=== PATIENT | female | born 1965 | race Caucasian/White ===

== ENCOUNTER 2018-08-22 05:35 | Inpatient (IN) | payer OTHER ==
[2018-08-18 16:49] VITALS: BMI 22.7
[2018-08-22] VITALS (28 sets, daily range): BP systolic 94–128; BP diastolic 52–86; PULSE 68–108; RESP 14–24; Ht 161.3 cm; Wt 59.0 kg
[~2018-08-22] VITALS: Ht 161.3 cm; Wt 59.0 kg
[~2018-08-22 05:35] MED LIST: LACTATED RINGER'S 1,000 ML IV SCH; OLME1TAB33 PO; VANCOMYCIN 1 GM (PMX) 250 ML IVPB ONE
--- NOTE | 2018-08-22 06:51 | HPN ---
Date/Time of Note Date/Time of Note DATE: 08/22/18 TIME: 06:51 Interval H&P Admission Note Pt. seen H&P reviewed: No system changes JOE PITTS MD Aug 22, 2018 06:51
--- NOTE | 2018-08-22 06:58 | PREAC ---
Date/Time of Note Date/Time of Note DATE: 08/22/18 TIME: 06:52 Anesthesia Eval and Record Evaluation Time Pre-Procedure Interview DATE: 08/22/18 TIME: 06:52 Age 53 Sex female NPO: 8 hrs Preoperative diagnosis Cervical Spine Displacement, DDD Planned procedure Anterior Cervical Spine Disectomy and Decompression and instrumented Fusion C4- 5, C5-6, C6-7 Past Medical History Past Medical History: Includes Cardio: HTN, Dyslipidemia Surgery & Anesthesia Issues No known issue Meds Anticoagulation: No Beta Katy within 24 hr: No Reason Beta Katy not given: Pt. not on B-Katy Reported Medications Ticqejoiek-Scgpffeduf-WMHY (Tribenzor) 40-5-25 Mg Tablet, 1 TAB PO DAILY, TAB 08/18/18 Current Medications Lactated Ringer's 1,000 ml @ 0 mls/hr Q0M IV Last administered on 08/22/18at 06:34; Admin Dose 25 MLS/HR; Start 08/22/18 at 05:00; Stop 08/22/18 at 16:00 Meds reviewed: Yes Allergies Coded Allergies: Penicillins (Verified Allergy, Unknown, RASH, 08/18/18) Allergies Reviewed: Yes Labs/Studies Labs Reviewed: Reviewed by anesthesiologist test: Negative Studies: ECG (n/a), CXR (n/a) Pre-procedure Exam Airway: Adequate mouth opening, Adequate thyromental dist Mallampati: Mallampati II Teeth: Normal Lung: Normal Heart: Normal ASA Physical Status ASA physical status: 2 Emergency: None Planned Anesthetic General/MAC: ETT Planned Pain Management Parenteral pain med Pre-operative Attestations Prior to commencing anesthesia and surgery, the patient was re-evaluated, there was verification of: *The patient's identity *The results of appropriate recent lab work and preoperative vital signs *The above evaluation not changing prior to induction *Anesthetic plan, risk benefits, alternative and complications discussed with patient/family; questions answered; patient/family understands, accepts and wishes to proceed. REJI FERNANDO MD Aug 22, 2018 06:58
[2018-08-22] MEDS ORDERED: MEPERIDINE 25 MG INJ IV PRN (07:00)
[2018-08-22] MEDS ORDERED: hydrALAzine 20 MG INJ IV PRN (07:00)
[2018-08-22] MEDS ORDERED: DIPHENHYDRAMINE 25 MG CAP PO PRN (07:00)
[2018-08-22] MEDS ORDERED: EPHEDrine 25 MG/5 ML SYG ONE (07:00)
[2018-08-22] MEDS ORDERED: NALOXONE (0.4 MG/ML) INJ IV PRN (07:00)
[2018-08-22] MEDS ORDERED: HYDROmorphONE 0.5 MG/0.5 ML SYG IV PRN (07:00)
[2018-08-22] MEDS ORDERED: ACETAMINOPHEN 325 MG TAB PO PRN (07:00)
[2018-08-22] MEDS ORDERED: LABETALOL HCL 20MG INJ IV PRN (07:00)
[2018-08-22] MEDS ORDERED: MAGNESIUM HYDROXIDE 30ML CUP PO PRN (07:00)
[2018-08-22] MEDS ORDERED: CEPASTAT LOZENGE MT PRN (07:00)
[2018-08-22] MEDS ORDERED: HYDROCODONE/APAP (10/325) TAB PO PRN (07:00)
[2018-08-22] MEDS ORDERED: DIPHENHYDRAMINE 50 MG INJ IV PRN ×2 (07:00)
[2018-08-22] MEDS ORDERED: METOCLOPRAMIDE 10 MG INJ IV PRN (07:00)
[2018-08-22] MEDS ORDERED: HYDROmorphONE 1 MG/5 ML IV SYRINGE IV PRN ×2 (07:00)
[2018-08-22] MEDS ORDERED: BISACODYL 10 MG SUPP PR PRN (07:00)
[2018-08-22] MEDS ORDERED: EPHEDrine 25 MG/5 ML SYG IV PRN (07:00)
[2018-08-22] MEDS ORDERED: FENTAnyl 50 MCG/ML VIAL IV PRN ×3 (07:00)
[2018-08-22] MEDS ORDERED: OXYCODONE/ACETAMINOPHEN (5/325) TAB PO PRN (07:00)
[2018-08-22] MEDS ORDERED: ONDANSETRON 4 MG INJ IV PRN ×2 (07:00)
[2018-08-22] MEDS ORDERED: SEVOFLURANE 15 MIN ONE (07:00)
[2018-08-22] MEDS ORDERED: ROCURONIUM 50 MG INJ ONE (07:05)
[2018-08-22] MEDS ORDERED: PROPOFOL 20 ML ONE (07:05)
[2018-08-22] MEDS ORDERED: MIDAZOLAM 1 MG/ML 2 ML INJ ONE (07:05)
[2018-08-22] MEDS ORDERED: SURGIFOAM POWDER 1 GM KIT ONE (07:07)
[2018-08-22] MEDS ORDERED: THROMBIN (BOVINE) 5,000 UNIT VIAL TP ONE (07:07)
[2018-08-22] MEDS ORDERED: BUPIVACAINE 0.25%/EPI (SDV) 30 ML INJ ONE (07:07)
[2018-08-22] MEDS ORDERED: GELATIN SIZE 100 SPONGE ONE (07:08)
[2018-08-22] MEDS ORDERED: POLYMYXIN/BACITRACIN 1L IRRIG ONE (07:08)
[2018-08-22] MEDS ORDERED: ONDANSETRON 4 MG INJ ONE (08:02)
[2018-08-22] MEDS ORDERED: DEXAMETHASONE 4 MG/ML 5 ML INJ ONE (08:02)
[2018-08-22] MEDS ORDERED: METOCLOPRAMIDE 10 MG INJ ONE (08:02)
[2018-08-22] MEDS ORDERED: SUGAMMADEX SODIUM 200 MG/2 ML VIAL IV ONE (10:02)
--- NOTE | 2018-08-22 10:34 | PAC ---
Date/Time of Note Date/Time of Note DATE: 08/22/18 TIME: 10:34 Post-Anesthesia Notes Post-Anesthesia Note Last documented vital signs T: 98.0 Activity: WNL Respiratory function: WNL Cardiovascular function: WNL Mental status: Baseline Pain reasonably controlled: Yes Hydration appropriate: Yes Nausea/Vomiting absent: Yes REJI FERNANDO MD Aug 22, 2018 10:34
--- NOTE | 2018-08-22 10:46 | SIPON ---
Date/Time of Note Date/Time of Note DATE: 08/22/18 TIME: 10:43 Operative Report Preoperative Diagnosis Cervical stenosis Postoperative Diagnosis Cervical stenosis Operation/Procedure Performed Cervical fusion Surgeon see signature line butcher assistant Gely Anesthesia: general Estimated blood loss: 10 - 50 ml's Transfusion Required none Specimen Disc Grafts/Implants Plate and cage Complications none JOE PITTS MD Aug 22, 2018 10:46
[2018-08-22] MEDS: HYDROmorphONE 1 MG/5 ML IV SYRINGE IV PRN ×2 (11:03→11:41)
[2018-08-22] MEDS ORDERED: SUCCINYLCHOLINE CHLORIDE 100 MG/5 ML SYG IV ONE (11:49)
[2018-08-22] MEDS: D5W-0.45 NACL + KCL 20 MEQ 1,000 ML IV SCH ×2 (12:12→16:51)
[2018-08-22] MEDS: HYDROCODONE/APAP (10/325) TAB PO PRN ×3 (13:19→21:36)
[2018-08-22] MEDS: CYCLOBENZAPRINE 10 MG TAB PO PRN (14:50)
[2018-08-22] MEDS: DOCUSATE SODIUM 100 MG CAP PO SCH ×2 (14:54→21:25)
--- NOTE | 2018-08-22 15:21 | OPR ---
DATE OF OPERATION: 08/22/2018 PREOPERATIVE DIAGNOSES: C4 to C5, C5 to C6, C6 to C7 cervical disk disease with stenosis and radicul opathy. POSTOPERATIVE DIAGNOSES: C4 to C5, C5 to C6, C6 to C7 cervical disk disease with stenosis and radicu lopathy. PROCEDURES: 1. Anterior cervical diskectomy and spinal cord decompression at C4 to C5, C5 to C6 and C6 to C7. 2. Partial corpectomies at C4, C5, C6 and C7. 3. Anterior cervical fusion at C4 to C5, C5 to C6 and C6 to C7. 4. Placement of intervertebral biomechanical device x3. 5. Placement of separate anterior cervical plate at C4 through C7. 6. Use of allograft. 7. Use of operative microscope. 8. Use of C-arm fluoroscopy with interpretation without radiologist present. 9. Intraoperative neuromonitoring. PRIMARY SURGEON: Eliceo Sanchez MD FARM LABOR CONTRACTOR: Leatha Hong PA-C NEED FOR SHOP SUPERVISOR: During this spinal surgical procedure, my middle school assistant principal was used to retract and protect the spinal nerves and dural sac. My middle school assistant principal also employed the suction catheters to ev acuate blood from the surgical field to improve visualization of the neural structures. The assistan t was medically necessary to facilitate the completion of the surgery in a safe and expeditious [facility] r. [facility] regulations, as well as hospital bylaws, preclude the use of non-licensed [facility] [place] care personnel, such as operating room technicians, to perform these functions. FINDINGS: Neuromonitoring at the start of the case revealed right C5 amplitude down 20%, left C6 william n 30%, right C6 down 40%, left C7 down 50%, right C7 down 40%. At the end of the case, nerve signals were normal. The patient had significant disk collapse and stenosis with posterior osteophytes from C4 to C7 necessitating the partial corpectomy in order to decompress the canal fully. ESTIMATED BLOOD LOSS: 40 mL. DRAINS: None. SPECIMENS: Disks from C4 to C5, C5 to C6 and C6 to C7. COMPLICATIONS OF PROCEDURES: None. ANESTHESIOLOGIST: Valdemar Gruber MD TYPE OF ANESTHESIA: General. INDICATIONS FOR PROCEDURE: This is a 53-year-old female with cervical disk disease and radiculopathy who failed nonoperative measures. Given this, it was recommended that she undergo the above procedu re. Preoperatively, we discussed risks, benefits, alternatives. She understood and wished to procee d. DESCRIPTION OF PROCEDURE IN DETAIL: The patient was identified in the preoperative holding area, giv en vancomycin antibiotic, taken to the operating room, where she was successfully placed under genera l anesthesia. Neuromonitoring leads were placed. Sequential compressive devices were applied. Fole y catheter was introduced. Remote intraoperative neuromonitoring was performed by Dr. Meredith cardona from 6:46 until 10:20 to include SSEP, MEP and EMG performed by [employer]. The patient wa s placed in the operative table in supine position. Towel rolls were placed and the arms were tucked at the side. Neck was extended and prepped, draped in usual sterile fashion. Left-sided neck incis ion was then made. Platysma was incised in line with the skin incision. I then identified the inter javan between the sternocleidomastoid and strap muscles and identified the anterior spine. I placed a bent spinal needle and took a lateral film to confirm the correct levels. Next, I subperiosteally di ssected the longus colli to expose the vertebral bodies and disks from C4 to C7. Retractors were syeda tavares and the anesthesiologist was deflated and reinflated the endotracheal cuff. Microscope was then brought in. I then performed anterior cervical diskectomy and spinal cord decompression at C4 to C5, C5 to C6 and C6 to C7. Due to large osteophytes, I had to perform partial corpectomies in order to decompress the canal thoroughly. I therefore performed partial corpectomies at C4, C5, C6 and C7, re moving at least 50% of each of the vertebral bodies. Once the decompression was completed, all nerve signals returned to normal. I placed various trials and chose the appropriate graft height. I then took the titanium cage within which I placed allograft. I impacted the intervertebral biomechanical device into the C4 to C5, C5 to C6 and C6 to C7 levels to complete the fusion at all 3 levels. Thes e cages did not have integral screws and therefore I placed a separate anterior plate spanning from C 4 to C7 with 14 mm screws. I locked down all the screws. At this point, I took the microscope off t he field. I took final AP and lateral images and I was happy with the placement of the hardware and alignment of the spine. Nerve signals were normal. The wound was irrigated and hemostasis was achie david. There was no active bleeding; therefore, I elected not to place a drain. The retractors were r emoved after irrigation and I closed the wound in layers. I closed the platysma with a running 2-0 V icryl stitch. I then closed subcutaneous tissue with a 3-0 Vicryl stitch. Dermabond was then applie d. The patient was then awakened from anesthesia and taken to the recovery room in stable condition. Lap, sponge and instrument counts were correct x2. There were no apparent complications during the procedure. The patient will be admitted to the orthopedic fish for routine postoperative care to include pain co ntrol, neurovascular checks, antibiotics and physical therapy. Dictated By: ELICEO SANCHEZ MD BB/NTS Conf#: [id number] DID#: [id number] CC: ELOY VAIL MD;*End*
[2018-08-22] MEDS: VANCOMYCIN 1 GM (PMX) 250 ML IVPB SCH (17:42)
--- NOTE | 2018-08-22 18:19 | CONS ---
Assessment/Plan Assessment/Plan Problems: (1) Essential (primary) hypertension Status: Chronic Comment: Cont. home BP therapy and monitor to make sure BP not too low. (2) Cervical disc disorder with radiculopathy of cervical region Status: Resolved Comment: Per primary team (3) Status post cervical spinal fusion Status: Acute Comment: Doing well POD#0. Pain control and PT per primary team. Will monitor and manage any medical issues should they arise. Consultation Date/Type/Reason Admit Date/Time Aug 22, 2018 at 05:35 Date of Consultation: Aug 22, 2018 Type of Consult Medicine Reason for Consultation Medical Management Requesting Provider: JOE PITTS MD Date/Time of Note DATE: 08/22/18 TIME: 18:12 Hx of Present Illness 53 y/o C F w/ h/o HTN in [facility] until last 2 years when she began to experience R neck pain. (+) range limitation on turning head to the R. (+) pain w/ lying on her neck. Needed pain meds, special pillows. Had PT, epidurals, sought chiropractic to no avail. Today had scheduled c-spine diskectomy and fusion. Doing well POD#0. Pain controlled. Ambulating w/ PT. Constitutional: no complaints, improved Eyes: no complaints ENT: no complaints Respiratory: no complaints Cardiovascular: no complaints Gastrointestinal: no complaints Genitourinary: no complaints Musculoskeletal: no complaints Neurologic: no complaints Past Medical History Medical History: hypertension Home Meds Reported Medications Ruepbvlziy-Vpheujneyw-TSYN (Tribenzor) 40-5-25 Mg Tablet, 1 TAB PO DAILY, TAB 08/18/18 Medications Current Medications Potassium Chloride/Dextrose/ Sod Cl 1,000 ml @ 100 mls/hr Q10H IV Last administered on 08/22/18at 12:12; Admin Dose 100 MLS/HR; Start 08/22/18 at 06:51 Acetaminophen/ Hydrocodone Bitart ([place] (10/325)) 1 tab Q4H PRN PO .PAIN 1-5; Start 08/22/18 at 07:00 Acetaminophen/ Hydrocodone Bitart ([place] (10/325)) 2 tab Q4H PRN PO .PAIN 6-10 Last administered on 08/22/18at 17:43; Admin Dose 2 TAB; Start 08/22/18 at 07:00 Hydromorphone HCl (Dilaudid) 0.2 mg Q1H PRN IV .BREAKTHROUGH PAIN; Start 08/22/18 at 07:00 Vancomycin HCl 250 ml @ 125 mls/hr Q12H IVPB Last administered on 08/22/18at 17:42; Admin Dose 125 MLS/HR; Start 08/22/18 at 18:00; Stop 08/23/18 at 07:59 Ondansetron HCl (Zofran Inj) 4 mg Q6H PRN IV NAUSEA/VOMITING; Start 08/22/18 at 07:00 Bisacodyl (Dulcolax Supp) 10 mg DAILY PRN NM .CONSTIPATION; Start 08/22/18 at 07:00 Docusate Sodium (Colace) 100 mg BID PO Last administered on 08/22/18at 14:54; Admin Dose 100 MG; Start 08/22/18 at 09:00 Magnesium Hydroxide (Milk Of Mag) 30 ml HS PRN PO .CONSTIPATION/DYSPEPSIA; Start 08/22/18 at 07:00 Acetaminophen (Tylenol Tab) 650 mg Q4H PRN PO AMBROSIO OR TEMP GREATER THAN 101.3F; Start 08/22/18 at 07:00 Cyclobenzaprine HCl (Flexeril) 10 mg TID PRN PO .MUSCLE SPASMS Last administered on 08/22/18at 14:50; Admin Dose 10 MG; Start 08/22/18 at 07:00 Phenol (Cepastat Lozenge) 1 lozenge PRN PRN MT .SORE THROAT; Start 08/22/18 at 07:00 Diphenhydramine HCl (Benadryl) 25 mg Q6H PRN PO .ITCHING; Start 08/22/18 at 07:00 Diphenhydramine HCl (Benadryl) 25 mg Q6H PRN IV .ITCHING; Start 08/22/18 at 07:00 Naloxone HCl (Narcan) 0.2 mg Q2M PRN IV .RR 8 BREATHS/MIN OR LESS; Start 08/22/18 at 07:00 Hydromorphone HCl (Dilaudid) 0.2 mg PACU PRN IV MILD PAIN 1-3; Start 08/22/18 at 07:00; Stop 08/22/18 at 19:00 Hydromorphone HCl (Dilaudid) 0.4 mg PACU PRN IV MOD PAIN 4-6 Last administered on 08/22/18at 11:12; Admin Dose 0.4 MG; Start 08/22/18 at 07:00; Stop 08/22/18 at 19:00 Hydromorphone HCl (Dilaudid) 0.6 mg PACU PRN IV SEVERE PAIN 7-10 Last administered on 08/22/18at 11:41; Admin Dose 0.6 MG; Start 08/22/18 at 07:00; Stop 08/22/18 at 19:00 Fentanyl (Sublimaze) 25 mcg PACU ORDER PRN IV MILD PAIN 1-3 Last administered on 08/22/18at 11:30; Admin Dose 25 MCG; Start 08/22/18 at 07:00; Stop 08/22/18 at 19:00 Fentanyl (Sublimaze) 50 mcg PACU ORDER PRN IV MOD PAIN 4-6; Start 08/22/18 at 07:00; Stop 08/22/18 at 19:00 Fentanyl (Sublimaze) 75 mcg PACU ORDER PRN IV SEVERE PAIN 7-10 Last administered on 08/22/18at 10:49; Admin Dose 75 MCG; Start 08/22/18 at 07:00; Stop 08/22/18 at 19:00 Oxycodone/ Acetaminophen (Percocet (5/ 325)) 1 tab PACU ORDER PRN PO .PAIN 1-5; Start 08/22/18 at 07:00; Stop 08/22/18 at 19:00 Ondansetron HCl (Zofran Inj) 4 mg PACU ORDER PRN IV NAUSEA/VOMITING; Start 08/22/18 at 07:00; Stop 08/22/18 at 19:00 Metoclopramide HCl (Reglan) 10 mg PACU ORDER PRN IV NAUSEA/VOMITING; Start 08/22/18 at 07:00; Stop 08/22/18 at 19:00 Labetalol HCl (Labetalol) 5 mg PACU ORDER PRN IV HIGH BLOOD PRESSURE; Start 08/22/18 at 07:00; Stop 08/22/18 at 19:00 Hydralazine HCl (Apresoline) 5 mg PACU ORDER PRN IV HIGH BLOOD PRESSURE; Start 08/22/18 at 07:00; Stop 08/22/18 at 19:00 Ephedrine Sulfate 5 mg PACU ORDER PRN IV BLOOD PRESSURE SUPPORT; Start 08/22/18 at 07:00; Stop 08/22/18 at 19:00 Meperidine HCl (Demerol) 25 mg PACU ORDER PRN IV .RIGORS; Start 08/22/18 at 07:00; Stop 08/22/18 at 19:00 Diphenhydramine HCl (Benadryl) 25 mg PACU ORDER PRN IV .PRURITUS; Start 08/22/18 at 07:00; Stop 08/22/18 at 19:00 Losartan Potassium (Cozaar) 100 mg DAILY PO ; Start 08/23/18 at 09:00 Amlodipine Besylate (Norvasc) 5 mg DAILY PO ; Start 08/23/18 at 09:00 Hydrochlorothiazide (Hydrochlorothiazide) 25 mg DAILY PO ; Start 08/23/18 at 09:00 Allergies: Coded Allergies: Penicillins (Verified Allergy, Unknown, RASH, 08/22/18) Past Surgical History Past Surgical Hx: other (c-sect x 2) Family History Significant Family History: heart disease (father), hypertension, other (thyroid disease) Social History b. 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, , 2 children Alcohol Use: other (1 glass daily) Smoking Status: Never smoker Drug Use: marijuana (nightly to sleep) Exam/Review of Systems Exam Vitals VS - Last 72 Hours, by Label Date Temp Pulse Resp B/P (MAP) Pulse Ox O2 O2 Flow FiO2 Time Delivery Rate 08/22/18 Nasal 2.0 12:30 Cannula 08/22/18 98.7 12:16 08/22/18 78 16 109/53 100 Nasal 11:50 (71) Cannula 08/22/18 78 16 109/52 100 Nasal 11:45 (71) Cannula 08/22/18 92 21 128/86 100 Nasal 11:40 (100) Cannula 08/22/18 92 20 120/77 100 Nasal 11:35 (91) Cannula 08/22/18 74 22 101/68 100 Nasal 11:30 (79) Cannula 08/22/18 78 22 94/57 (69) 100 Nasal 11:25 Cannula 08/22/18 74 22 113/56 100 Nasal 11:20 (75) Cannula 08/22/18 76 19 108/53 100 Nasal 11:15 (71) Cannula 08/22/18 78 22 117/70 100 Nasal 11:10 (86) Cannula 08/22/18 86 20 114/66 100 Nasal 11:05 (82) Cannula 08/22/18 90 18 119/62 100 Nasal 11:00 (81) Cannula 08/22/18 74 22 114/64 100 Nasal 10:55 (81) Cannula 08/22/18 88 19 112/59 100 Nasal 10:50 (76) Cannula 08/22/18 96 20 111/61 100 Mask 10:45 (78) 08/22/18 88 24 125/62 100 Mask 10:40 (83) 08/22/18 Simple 8.0 10:40 Mask 08/22/18 92 23 119/60 100 Mask 10:35 (79) 08/22/18 98.0 72 18 106/64 98 Mask 8.0 10:30 (78) 08/22/18 98.9 68 18 107/73 97 06:50 (84) Vital Signs Date Temp Pulse Resp B/P (MAP) Pulse Ox O2 O2 Flow FiO2 Time Delivery Rate 08/22/18 Nasal 2.0 12:30 Cannula 08/22/18 98.7 12:16 08/22/18 78 16 109/53 100 11:50 (71) Constitutional: alert, oriented, well developed Psych: no complaints, nl mood/affect Eyes: nl conjunctiva, EOMI, nl lids, nl sclera, PERRL ENMT: nl external ears & nose, mucosa pink and moist Neck: supple, non-tender, other ((+) L anterior neck wound); No bruits, No masses, No thyromegaly Respiratory: clear to auscultation, normal air movement Cardiovascular: regular rate and rhythm, nl pulses; No edema, No murmurs/extra sounds, No rub Gastrointestinal: soft, nl liver, spleen, non-tender, bowel sounds; No mass, No rebound or guarding Musculoskeletal: nl extremities to inspection Extremities: normal pulses; No cyanosis, No clubbing, No edema Neurological: DIRECT CUSTOMER SERVICE REPRESENTATIVE II-XII intact, nl mental status, nl speech, nl strength Medications Medication Current Medications Potassium Chloride/Dextrose/ Sod Cl 1,000 ml @ 100 mls/hr Q10H IV Last administered on 08/22/18at 12:12; Admin Dose 100 MLS/HR; Start 08/22/18 at 06:51 Acetaminophen/ Hydrocodone Bitart ([place] (10325)) 1 tab Q4H PRN PO .PAIN 1-5; Start 08/22/18 at 07:00 Acetaminophen/ Hydrocodone Bitart ([place] (10/325)) 2 tab Q4H PRN PO .PAIN 6-10 Last administered on 08/22/18at 17:43; Admin Dose 2 TAB; Start 08/22/18 at 07:00 Hydromorphone HCl (Dilaudid) 0.2 mg Q1H PRN IV .BREAKTHROUGH PAIN; Start 08/22/18 at 07:00 Vancomycin HCl 250 ml @ 125 mls/hr Q12H IVPB Last administered on 08/22/18at 17:42; Admin Dose 125 MLS/HR; Start 08/22/18 at 18:00; Stop 08/23/18 at 07:59 Ondansetron HCl (Zofran Inj) 4 mg Q6H PRN IV NAUSEA/VOMITING; Start 08/22/18 at 07:00 Bisacodyl (Dulcolax Supp) 10 mg DAILY PRN NM .CONSTIPATION; Start 08/22/18 at 07:00 Docusate Sodium (Colace) 100 mg BID PO Last administered on 08/22/18at 14:54; Admin Dose 100 MG; Start 08/22/18 at 09:00 Magnesium Hydroxide (Milk Of Mag) 30 ml HS PRN PO .CONSTIPATION/DYSPEPSIA; Start 08/22/18 at 07:00 Acetaminophen (Tylenol Tab) 650 mg Q4H PRN PO AMBROSIO OR TEMP GREATER THAN 101.3F; Start 08/22/18 at 07:00 Cyclobenzaprine HCl (Flexeril) 10 mg TID PRN PO .MUSCLE SPASMS Last administered on 08/22/18at 14:50; Admin Dose 10 MG; Start 08/22/18 at 07:00 Phenol (Cepastat Lozenge) 1 lozenge PRN PRN MT .SORE THROAT; Start 08/22/18 at 07:00 Diphenhydramine HCl (Benadryl) 25 mg Q6H PRN PO .ITCHING; Start 08/22/18 at 07:00 Diphenhydramine HCl (Benadryl) 25 mg Q6H PRN IV .ITCHING; Start 08/22/18 at 07:00 Naloxone HCl (Narcan) 0.2 mg Q2M PRN IV .RR 8 BREATHS/MIN OR LESS; Start 08/22/18 at 07:00 Hydromorphone HCl (Dilaudid) 0.2 mg PACU PRN IV MILD PAIN 1-3; Start 08/22/18 at 07:00; Stop 08/22/18 at 19:00 Hydromorphone HCl (Dilaudid) 0.4 mg PACU PRN IV MOD PAIN 4-6 Last administered on 08/22/18 11:12; Admin Dose 0.4 MG; Start 08/22/18 at 07:00; Stop 08/22/18 at 19:00 Hydromorphone HCl (Dilaudid) 0.6 mg PACU PRN IV SEVERE PAIN 7-10 Last administered on 08/22/18at 11:41; Admin Dose 0.6 MG; Start 08/22/18 at 07:00; Stop 08/22/18 at 19:00 Fentanyl (Sublimaze) 25 mcg PACU ORDER PRN IV MILD PAIN 1-3 Last administered on 08/22/18 11:30; Admin Dose 25 MCG; Start 08/22/18 at 07:00; Stop 08/22/18 at 19:00 Fentanyl (Sublimaze) 50 mcg PACU ORDER PRN IV MOD PAIN 4-6; Start 08/22/18 at 07:00; Stop 08/22/18 at 19:00 Fentanyl (Sublimaze) 75 mcg PACU ORDER PRN IV SEVERE PAIN 7-10 Last administered on 08/22/18 10:49; Admin Dose 75 MCG; Start 08/22/18 at 07:00; Stop 08/22/18 at 19:00 Oxycodone/ Acetaminophen (Percocet (5/ 325)) 1 tab PACU ORDER PRN PO .PAIN 1-5; Start 08/22/18 at 07:00; Stop 08/22/18 at 19:00 Ondansetron HCl (Zofran Inj) 4 mg PACU ORDER PRN IV NAUSEA/VOMITING; Start 08/22/18 at 07:00; Stop 08/22/18 at 19:00 Metoclopramide HCl (Reglan) 10 mg PACU ORDER PRN IV NAUSEA/VOMITING; Start 08/22/18 at 07:00; Stop 08/22/18 at 19:00 Labetalol HCl (Labetalol) 5 mg PACU ORDER PRN IV HIGH BLOOD PRESSURE; Start 08/22/18 at 07:00; Stop 08/22/18 at 19:00 Hydralazine HCl (Apresoline) 5 mg PACU ORDER PRN IV HIGH BLOOD PRESSURE; Start 08/22/18 at 07:00; Stop 08/22/18 at 19:00 Ephedrine Sulfate 5 mg PACU ORDER PRN IV BLOOD PRESSURE SUPPORT; Start 08/22/18 at 07:00; Stop 08/22/18 at 19:00 Meperidine HCl (Demerol) 25 mg PACU ORDER PRN IV .RIGORS; Start 08/22/18 at 07:00; Stop 08/22/18 at 19:00 Diphenhydramine HCl (Benadryl) 25 mg PACU ORDER PRN IV .PRURITUS; Start 08/22/18 at 07:00; Stop 08/22/18 at 19:00 Losartan Potassium (Cozaar) 100 mg DAILY PO ; Start 08/23/18 at 09:00 Amlodipine Besylate (Norvasc) 5 mg DAILY PO ; Start 08/23/18 at 09:00 Hydrochlorothiazide (Hydrochlorothiazide) 25 mg DAILY PO ; Start 08/23/18 at 09:00 PETER TRAN MD Aug 22, 2018 18:19
[2018-08-23] MEDS: D5W-0.45 NACL + KCL 20 MEQ 1,000 ML IV SCH ×2 (01:40→12:51)
[2018-08-23] MEDS: HYDROCODONE/APAP (10/325) TAB PO PRN ×3 (01:40→13:35)
[2018-08-23 01:45] VITALS: BP 120/70; PULSE 72; RESP 18
[2018-08-23] MEDS: VANCOMYCIN 1 GM (PMX) 250 ML IVPB SCH (05:09)
[2018-08-23 07:38] VITALS: BP 116/70; PULSE 69; RESP 18
[2018-08-23] MEDS: DOCUSATE SODIUM 100 MG CAP PO SCH (08:07)
[2018-08-23] MEDS: CYCLOBENZAPRINE 10 MG TAB PO PRN (08:09)
[2018-08-23] MEDS ORDERED: LOSARTAN 50 MG TAB PO SCH (09:00)
[2018-08-23] MEDS ORDERED: AMLODIPINE 5 MG TAB PO SCH (09:00)
[2018-08-23] MEDS ORDERED: HYDROCHLOROTHIAZIDE 25 MG TAB PO SCH (09:00)
--- NOTE | 2018-08-28 09:11 | DS ---
DATE OF ADMISSION: 08/22/2018 DATE OF DISCHARGE: 08/23/2018 ADMITTING DIAGNOSIS: Cervical stenosis. DISCHARGE DIAGNOSIS: Cervical stenosis. PROCEDURE: The patient taken to the operating room on 08/22/2018, underwent a cervical fusion. HOSPITAL COURSE: The patient was admitted to orthopedic fish after undergoing the above procedure. Her postoperative course was uncomplicated. By postoperative day 1, she was deemed stable for discha rge. Followup arranged with the undersigned. Dictated By: JOE BURGESS/MONICA Conf#: [id number] DID#: [id number]
== END 2018-08-23 14:41 | disposition home or self-care (01) | DRG 473 ==
LOC: REC 05:35 → MS1 11:49
PROVIDERS: ADMIT Specialist; ATTEND Specialist
PROC: 0RG20K0 Fusion of 2 or more Cervical Vertebral Joints with Nonautologous Tissue Substitute, Anterior Approach, Anterior Column, Open Approach (ICD-10-PCS; 2018-08-22)
PROC: 00NW0ZZ Release Cervical Spinal Cord, Open Approach (ICD-10-PCS; 2018-08-22)
PROC: 01N10ZZ Release Cervical Nerve, Open Approach (ICD-10-PCS; 2018-08-22)
PROC: 0RB30ZZ Excision of Cervical Vertebral Disc, Open Approach (ICD-10-PCS; 2018-08-22)
PROC: 0RG20A0 Fusion of 2 or more Cervical Vertebral Joints with Interbody Fusion Device, Anterior Approach, Anterior Column, Open Approach (ICD-10-PCS; principal; 2018-08-22 07:00)
DX: M50.121 Cervical disc disorder at C4-C5 level with radiculopathy (principal); M48.02 Spinal stenosis, cervical region
CPT/HCPCS: 72050; 80048; 83735; 85025; 87086; 88304; 97116; 97161; 97530; C1713; J1100; J1170; J1200; J2250; J2405; J2765; J3010; J3370; J3480